=== PATIENT | male | born 1975 | race Caucasian/White ===

== ENCOUNTER 2020-02-26 15:39 | Emergency (ER) | payer OTHER ==
[2020-02-26] MEDS ORDERED: Lidocaine 1% (PF) 30 ML VIAL ONE (16:03)
[2020-02-26] MEDS ORDERED: Adacel (T-DAP) 0.5 ML SYRINGE ONE (16:03)
== END 2020-02-26 16:47 | disposition home or self-care (01) ==
LOC: NAV ERS 15:39
DX: S61.212A Laceration without foreign body of right middle finger without damage to nail, initial encounter (principal); M86.9 Osteomyelitis, unspecified; I10 Essential (primary) hypertension; Z79.899 Other long term (current) drug therapy; W45.8XXA Other foreign body or object entering through skin, initial encounter
CPT/HCPCS: 12001; 90471; 90715; J2001

== ENCOUNTER 2020-03-05 14:37 | Emergency (ER) | payer OTHER | END 2020-03-05 15:00 | disposition home or self-care (01) | LOC: NAV ERS 14:37 | DX: S61.212D Laceration without foreign body of right middle finger without damage to nail, subsequent encounter (principal); I10 Essential (primary) hypertension; Z79.899 Other long term (current) drug therapy ==